=== PATIENT | female | born 1955 | race American Indian/Alaskan Native ===

== ENCOUNTER 2017-02-07 20:03 | Emergency (ER) | payer OTHER ==
[2017-02-07 20:30] VITALS: BP 155/93
[2017-02-07 21:32] LABS: Basophils % (Auto) 0.9 % (0.0-1.8); Eosinophils % (Auto) 2.7 % (0.0-4.3); Hemoglobin 11.4 gm/dl (10.1-14.3); Mean Corpuscular HGB Conc 32 % (30-34); Mean Corpuscular Hemoglobin 26 pg (28-32); Mean Corpuscular Volume 83 fl (79-97); Platelet Count 275 K/mm3 (140-440); Red Blood Count 4.34 M/mm3 (3.65-5.03); Red Cell Distribution Width 13.2 % (13.2-15.2); White Blood Count 3.8 K/mm3 (4.5-11.0)
[2017-02-07 21:49] LABS: Anion Gap 14 mmol/L; BUN/Creatinine Ratio 12.85; Blood Urea Nitrogen 9 mg/dL (7-17); Calcium 9.6 mg/dL (8.4-10.2); Carbon Dioxide 26 mmol/L (22-30); Glucose 84 mg/dL (65-100); Potassium 3.9 mmol/L (3.6-5.0); Sodium 139 mmol/L (137-145)
--- NOTE | 2017-02-07 23:00 | XRay Report ---
FINAL REPORT PROCEDURE: XR KNEE 3V RT TECHNIQUE: RIGHT knee radiographs, AP, lateral and oblique views. CPT 73761 HISTORY: Pain, COMPARISON: No prior studies are available for comparison. FINDINGS: Fracture (s) and/or Dislocation(s): None . Alignment: Normal . Joint space(s): Tricompartmental degenerative change with joint space narrowing and mild spurring. Soft tissues: Suprapatellar joint effusion. Bone mineralization: Normal . Foreign bodies: None . IMPRESSION: Degenerative change. Joint effusion.
[2017-02-07] MEDS ORDERED: PERCOCET 5/325 PO ONE (23:15)
--- NOTE | 2017-02-07 23:16 | Emergency Department Report ---
ED Lower Extremity HPI - General Chief Complaint: Extremity Problem,Nontraumatic Stated Complaint: RT KNEE PAIN/SWELLING Time Seen by Provider: 02/07/17 22:40 Source: patient, family Mode of arrival: Ambulatory Limitations: No Limitations - History of Present Illness Initial Comments: Patient here complaining of knee pain flareup for 3-4 days to her right knee. She denies any trauma she said she had prior history 6-7 years ago and she has arthritis. She said it's painful aching 6 out of 10 and is hard for her to be a pressure at side. Denies any fever or chills. Denies any nausea or vomiting. Denies any redness to knee. She says she has some swelling to that knee. MD Complaint: other (chronic knee pain) Onset/Timin -: days(s) Injury: Knee: Right (pain and swelling) Type of Injury: other (arthritis) Place: home Severity: moderate Severity scale (0 -10): 6 Worsens With: weight bearing, movement, palpation Context: other (chronic knee pain) Associated Symptoms: swelling, able to partially bear weight. denies: snap/pop sensation, numbness, tingling, unable to bear weight, ambulatory Treatments Prior to Arrival: NSAIDS - Related Data Home Medications Medication Instructions Recorded Confirmed Last Taken cycloSPORINE [Restasis 0.05%] 1 drop OU BID 01/12/15 01/12/15 01/12/15 07:00 Previous Rx's Medication Instructions Recorded Last Taken Type Naproxen [Naprosyn] 500 mg PO BID #30 tablet 01/12/15 Unknown Rx traMADol [Ultram 50 MG tab] 50 mg PO Q6HR PRN #20 tablet 01/12/15 Unknown Rx Magnesium Citrate [Citrate of 300 ml PO NOW #1 bottle 02/21/16 Unknown Rx Magnesia] HYDROcodone/APAP 5-325 [Dover 1 each PO Q6HR PRN #12 tablet 02/08/17 Unknown Rx 5/325] Ibuprofen [Motrin] 600 mg PO Q8H PRN #15 tablet 02/08/17 Unknown Rx Allergies Allergy/AdvReac Type Severity Reaction Status Date / Time shellfish Allergy Swelling Uncoded 02/07/17 20:27 ED Review of Systems ROS: Stated complaint: RT KNEE PAIN/SWELLING Other details as noted in HPI Comment: All other systems reviewed and negative Constitutional: denies: chills, fever Respiratory: no symptoms reported Cardiovascular: denies: chest pain, palpitations, edema, syncope Gastrointestinal: denies: abdominal pain, nausea, vomiting Musculoskeletal: joint swelling, arthralgia. denies: back pain, myalgia Skin: denies: rash Neurological: abnormal gait (due to chronic knee pain and swelling). denies: headache, weakness, numbness, paresthesias, vertigo ED Past Medical Hx - Past Medical History Previous Medical History?: Yes Hx Headaches / Migraines: Yes (TMJ) Additional medical history: SARCOIDOSIS-NASAL INVOLVEMENT - Surgical History Past Surgical History?: Yes Additional Surgical History: HYSTERECTOMY. EYE SURGERY--TEAR DUCTS. CYST REMOVED UNDER CHIN. SINUS SURGERY X 3 - Social History Smoking Status: Never Smoker Substance Use Type: None - Medications Home Medications: Home Medications Medication Instructions Recorded Confirmed Last Taken Type Naproxen [Naprosyn] 500 mg PO BID #30 tablet 01/12/15 Unknown Rx cycloSPORINE [Restasis 0.05%] 1 drop OU BID 01/12/15 01/12/15 01/12/15 07:00 History traMADol [Ultram 50 MG tab] 50 mg PO Q6HR PRN #20 tablet 01/12/15 Unknown Rx Magnesium Citrate [Citrate of 300 ml PO NOW #1 bottle 02/21/16 Unknown Rx Magnesia] HYDROcodone/APAP 5-325 [Dover 1 each PO Q6HR PRN #12 tablet 02/08/17 Unknown Rx 5/325] Ibuprofen [Motrin] 600 mg PO Q8H PRN #15 tablet 02/08/17 Unknown Rx ED Physical Exam - General Limitations: No Limitations General appearance: alert, in no apparent distress - Head Head exam: Present: atraumatic, normocephalic, normal inspection - Eye Eye exam: Present: normal appearance, PERRL, EOMI Pupils: Present: normal accommodation - Neck Neck exam: Present: normal inspection, full ROM. Absent: tenderness, meningismus, lymphadenopathy - Respiratory Respiratory exam: Present: normal lung sounds bilaterally. Absent: respiratory distress, chest wall tenderness - Cardiovascular Cardiovascular Exam: Present: regular rate, normal rhythm, normal heart sounds - Expanded Lower Extremity Exam Right Hip exam: Present: normal inspection, full ROM, pelvic stability. Absent: tenderness, swelling, abrasion, laceration, ecchymosis, deformity, crepidus, dislocation, erythema, external rotation, internal rotation, shortening Upper Leg exam: Present: normal inspection, full ROM. Absent: tenderness, swelling, abrasion, laceration, ecchymosis, deformity, crepidus, dislocation, erythema Knee exam: Present: tenderness, swelling, effusion, pain w/ pronation/ supination. Absent: normal inspection, full ROM, abrasion, laceration, ecchymosis, deformity, crepidus, dislocation, erythema, posterior draw sign, full knee extension Lower Leg exam: Present: normal inspection, full ROM. Absent: tenderness, swelling, abrasion, laceration, ecchymosis, deformity, crepidus, dislocation, erythema, palpable cord, Nessa's sign Ankle exam: Present: normal inspection, full ROM. Absent: tenderness, swelling , abrasion, laceration, ecchymosis, deformity, crepidus, dislocation, erythema Foot/Toe exam: Present: normal inspection, full ROM. Absent: tenderness, swelling, abrasion, laceration, ecchymosis, deformity, crepidus, dislocation, erythema, amputation, puncture wound, foreign body, calcaneal tenderness, tenderness at base of 5th metatarsal, nail avulsion Neuro vascular tendon exam: Present: no vascular compromise, significant pain with passive ROM of distal joint. Absent: pulse deficit, abnormal cap refill, motor deficit, sensory deficit, tendon deficit, extremity cold to touch, pallor , abnormal 2-point discrimination, decreased fine/light touch, foot drop, peroneal nerve deficit Gait: Positive: unable to bear weight - Neurological Exam Neurological exam: Present: alert, oriented X3, reflexes normal. Absent: abnormal gait (due to knee pain and swelling), motor sensory deficit - Psychiatric Psychiatric exam: Present: normal affect, normal mood - Skin Skin exam: Present: warm, dry, intact, normal color. Absent: rash ED Course Vital Signs 02/07/17 02/07/17 20:27 23:31 Temperature 85.9 F L 97.6 F Pulse Rate 66 Respiratory 20 Rate Blood Pressure 155/93 [Right] O2 Sat by Pulse 100 Oximetry Vital Signs 02/07/17 02/07/17 20:27 23:31 Temperature 85.9 F L 97.6 F Pulse Rate 66 Respiratory 20 Rate Blood Pressure 155/93 [Right] O2 Sat by Pulse 100 Oximetry - Reevaluation(s) Reevaluation #1: 02/08/17 00:16 Patient given Percocet 2 tablets in emergency room for knee pain which helped her knee pain. - Orthopedic Splinting/Casting Injury #1 Side: right Lower Extremity Injury Location: knee Lower Extremity Immobilizer: knee immobilizer Other Orthopedic Equipment: crutches ED Lower Extremity MDM - Lab Data Result diagrams: 02/07/17 21:18 02/07/17 21:18 Lab Results 02/07/17 02/07/17 Range/Units 21:18 21:18 WBC 3.8 L (4.5-11.0) K/mm3 RBC 4.34 (3.65-5.03) M/mm3 Hgb 11.4 (10.1-14.3) gm/dl Hct 36.0 (30.3-42.9) % MCV 83 (79-97) fl MCH 26 L (28-32) pg MCHC 32 (30-34) % RDW 13.2 (13.2-15.2) % Plt Count 275 (140-440) K/mm3 Lymph % (Auto) 47.3 H (13.4-35.0) % Florence % (Auto) 7.6 H (0.0-7.3) % Eos % (Auto) 2.7 (0.0-4.3) % Baso % (Auto) 0.9 (0.0-1.8) % Lymph # 1.8 (1.2-5.4) K/mm3 Florence # 0.3 (0.0-0.8) K/mm3 Eos # 0.1 (0.0-0.4) K/mm3 Baso # 0.0 (0.0-0.1) K/mm3 Seg Neutrophils % 41.5 (40.0-70.0) % Seg Neutrophils # 1.6 L (1.8-7.7) K/mm3 Sodium 139 (137-145) mmol/L Potassium 3.9 (3.6-5.0) mmol/L Chloride 103.0 (98-107) mmol/L Carbon Dioxide 26 (22-30) mmol/L Anion Gap 14 mmol/L BUN 9 (7-17) mg/dL Creatinine 0.7 (0.7-1.2) mg/dL Estimated GFR > 60 ml/min BUN/Creatinine Ratio 12.85 % Glucose 84 (65-100) mg/dL Calcium 9.6 (8.4-10.2) mg/dL - Radiology Data Radiology results: report reviewed X-ray of the right knee reveals degenerative changes with joint effusion - Medical Decision Making ED course: Given that 5 says she should've 52 tablets today pain with some relief of the pain. Procedure note for details on splinting. The patient that her x-ray revealed that she has degenerative changes in her knee with knee effusion. I discussed with her that she will need to follow-up with orthopedic doctor for further treatment and evaluation. She was understanding of diagnosis and treatment plan. Discharged home with her with prescription for Dover and Motrin Critical care attestation.: If time is entered above; I have spent that time in minutes in the direct care of this critically ill patient, excluding procedure time. ED Disposition Clinical Impression: Knee effusion, right, Arthralgia of right knee Degenerative joint disease of knee, right Qualifiers: Osteoarthritis type: unspecified Qualified Code(s): M17.9 - Osteoarthritis of knee, unspecified Disposition: DISCHARGED TO HOME OR SELFCARE Is pt being admited?: No Does the pt Need Aspirin: No Condition: Stable Instructions: Osteoarthritis (ED), Arthralgia (ED), Knee Effusion (ED) Additional Instructions: Please keep knee immobilizer on until seen by orthopedic doctor. Call tomorrow to schedule appointment for follow-up orthopedic doctor. Do not take Dover while you are driving or operating any heavy machinery as this medication causes drowsiness. Prescriptions: HYDROcodone/APAP 5-325 [Dover 5/325] 1 each PO Q6HR PRN #12 tablet PRN Reason: Pain Ibuprofen [Motrin] 600 mg PO Q8H PRN #15 tablet PRN Reason: Pain Referrals: SUNNY ORTIZ MD [Staff Physician] - 02/08/17 Forms: Work/School Release Form(ED), Accompanied Note
== END 2017-02-08 04:18 | disposition home or self-care (01) ==
LOC: ED 20:03
DX: M17.9 Osteoarthritis of knee, unspecified (principal); M25.461 Effusion, right knee; G89.29 Other chronic pain; G43.909 Migraine, unspecified, not intractable, without status migrainosus; Z91.013 Allergy to seafood
CPT/HCPCS: 36415; 80048; 85025

== ENCOUNTER 2020-01-23 13:07 | Outpatient (CLI) | payer OTHER ==
--- NOTE | 2020-01-23 16:32 | Mammography Report ---
DIGITAL SCREENING MAMMOGRAM WITH CAD, 01/23/2020 INDICATION: Routine screening mammography. TECHNIQUE: Digital bilateral 2D mammography was obtained in the craniocaudal and mediolateral obliq ue projections. This examination was interpreted with the benefit of Computer-Aided Detection analysi s. COMPARISON: None available. However, she indicated that she had a prior mammogram at [facility]. FINDINGS: Breast Density: The breasts are heterogeneously dense, which may obscure small masses. A right inner asymmetry on the CC view requires comparison with a prior mammogram or additional imagi ng. No architectural distortion or suspicious calcifications of the right breast. There is no evidenc e of dominant mass, suspicious calcifications or architectural distortion in the left breast. IMPRESSION:Comparison with a previous mammogram is recommended. We will attempt to obtain a prior gideon mogram for comparison. If we do not obtain a prior mammogram within 30 days, a revised report will be issued recommending a recall for additional imaging. Please be advised that the patient should not s chedule an appointment for return until adequate time (at least 2 weeks) has passed for us to obtain the prior mammogram. Follow up recommendation: Obtain prior study for comparison Category 0: Incomplete. Needs additional imaging evaluation and/or prior mammograms for comparison. A "normal" or negative report should not discourage follow up or biopsy of a clinically significant f inding. A written summary of these findings will be mailed to the patient. The patient will be entered into a mammography reporting system which will generate a reminder letter for the patient's next appointmen t at the appropriate interval. The [employer] recommends yearly mammograms starting at age 40 and continuing as l hollis as a woman is in good health. Breast MRI is recommended for women with an approximate 20-25% or greater lifetime risk of breast cancer, including women with a strong family history of breast or ova edmond cancer or who have been treated for Hodgkin's disease. Signer Name: Gregory Abdi MD Signed: 01/23/2020 4:28 PM Workstation Name: [id number]
== END 2020-01-23 13:08 | disposition home or self-care (01) ==
LOC: MAMMO 13:07
DX: Z12.31 Encounter for screening mammogram for malignant neoplasm of breast (principal); K58.1 Irritable bowel syndrome with constipation; D86.9 Sarcoidosis, unspecified; R00.2 Palpitations; M25.561 Pain in right knee
CPT/HCPCS: 77067

== ENCOUNTER 2020-03-03 08:04 | Outpatient (CLI) | payer OTHER ==
--- NOTE | 2020-03-03 12:00 | Mammography Report ---
RIGHT DIGITAL DIAGNOSTIC MAMMOGRAM WITH CAD -- 03/03/2020 RIGHT LIMITED BREAST ULTRASOUND INDICATION: Patient presents as a callback from screening mammogram for further evaluation of an asym metric density in the right breast. TECHNIQUE: Digital right mammographic imaging was performed. Spot compression views were obtained. L imited ultrasound was performed. This examination was interpreted with the benefit of Computer-Aided Detection (CAD) analysis. COMPARISON: Prior mammogram 01/23/2020 FINDINGS: Breast Density: The breasts are heterogeneously dense, which may obscure small masses. MAMMOGRAPHIC FINDINGS: There is a persistent 10 mm focal asymmetric density seen in the 1 to 2:00 pos ition of the right breast, middle depth, located 6 cm from the nipple. Targeted ultrasound performed for further evaluation. ULTRASOUND FINDINGS: Targeted ultrasound evaluation was performed of the area of interest. Targeted ultrasound of the upper inner quadrant of the right breast reveals an incidental benign intramammary lymph node in the 2:00 subareolar position of the right breast measuring up to 6 mm. This is felt to represent an incidental finding which does not definitively correlate with the mammographic focal as ymmetric density. No suspicious cystic or solid lesion identified. IMPRESSION: 1. A persistent focal asymmetric density in the right breast is considered suspicious for malignancy. As no sonographic correlate is identified, either tomosynthesis capable stereotactic biopsy versus w anuj localized excisional biopsy is recommended. Follow up recommendation: Biopsy BI-RADS Category 4: Suspicious for Malignancy. A "normal" or negative report should not discourage follow up or biopsy of a clinically significant f inding. A written summary of these findings will be mailed to the patient. The patient will be entered into a mammography reporting system which will generate a reminder letter for the patient's next appointmen t at the appropriate interval. According to the [employer], yearly mammograms are recommended starting at age 40 and continuing as long as a woman is in good health. Breast MRI is recommended for women with an zhou roximately 20-25% or greater lifetime risk of breast cancer, including women with a strong family his tory of breast or ovarian cancer and women who have been treated for Hodgkin's disease. Signer Name: Yaneli Adams MD Signed: 03/03/2020 11:56 AM Workstation Name: [email or web address]
== END 2020-03-03 08:05 | disposition home or self-care (01) ==
LOC: MAMMO 08:04
PROVIDERS: ATTEND Internal Medicine
DX: R92.8 Other abnormal and inconclusive findings on diagnostic imaging of breast (principal); D36.0 Benign neoplasm of lymph nodes

== ENCOUNTER 2020-03-19 10:12 | Outpatient (CLI) | payer OTHER ==
--- NOTE | 2020-03-19 14:13 | Mammography Report ---
UNSUCCESSFUL STEREOTACTIC NEEDLE BIOPSY RIGHT BREAST INDICATION: RIGHT BREAST ASYMMETRY. Negative right breast ultrasound. COMPARISON: 03/03/2020 and 01/23/2020 mammograms and 03/03/2020 right breast ultrasound. FINDINGS: The patient was placed prone on the stereotactic biopsy table. Make Up Arranger images were obtained. However, a suitable lesion cannot be targeted for biopsy. No anesthesia was administered and no skin incision w as made. IMPRESSION: 1. Unsuccessful attempt at right stereotactic breast biopsy. 2. Recommend MRI breast to further evaluate the right inner mammographic asymmetry.. Signer Name: Gregory Abdi MD Signed: 03/19/2020 2:09 PM Workstation Name: [id number]
--- NOTE | 2020-03-19 15:27 | Magnetic Resonance Report ---
BILATERAL BREAST MR WITHOUT AND WITH GADOLINIUM INDICATION: Abnormal mammogram with a right inner asymmetry identified only on the CC view. Unsucces sful attempt at stereotactic biopsy on the same day as this study. COMPARISONS: 03/03/2020 and 01/23/2020 mammograms and 03/03/2020 right breast ultrasound. TECHNIQUE: Axial 1.0 mm T1 without, axial high-resolution 2.0 mm T2 and axial 1.0 mm dynamic vibrant high-resolution postcontrast T1 fat saturation sequences on a 1.5 Camelia magnet. The examination was p erformed with an 8-channel dedicated Sentinelle breast coil. Post-processing with CAD and subtraction was performed on an [employer] workstation. 17.0 cc of MultiHance was injected without incident for the c ontrast portion of the exam. Consent was obtained prior to the administration of the contrast. FINDINGS: RIGHT BREAST: Minimal background parenchymal enhancement. No mass or suspicious enhancement. No suspi cious lymph nodes. LEFT BREAST: Minimal background parenchymal enhancement. No mass or suspicious enhancement. No suspic ious lymph nodes. IMPRESSION: Negative study. Recommend routine mammographic screening. BI-RADS Category 1: Negative A normal MRI does not exclude the presence of some forms of breast malignancy as literature reports s uggest that some forms of ductal carcinoma in situ or lobular carcinoma, particularly, may not be det ected on MRI. The sensitivity and specificity of MRI for cancers under 5 mm may be reduced. MRI does not replace the recommendation for annual conventional mammographic evaluation and should be used as an adjunct to mammography and physical examination as necessary. Signer Name: Gregory Abdi MD Signed: 03/19/2020 3:22 PM Workstation Name: [id number]
== END 2020-03-19 10:13 | disposition home or self-care (01) ==
LOC: SPVWC 10:12
PROVIDERS: ATTEND Internal Medicine
DX: R92.8 Other abnormal and inconclusive findings on diagnostic imaging of breast (principal)
CPT/HCPCS: A9577; C8908; 77049

== ENCOUNTER 2021-03-24 09:50 | Outpatient (CLI) | payer OTHER ==
--- NOTE | 2021-03-24 12:21 | Mammography Report ---
BILATERAL DIGITAL SCREENING MAMMOGRAM WITH CAD HISTORY: Screening mammogram. Finding noted previously in the right upper inner breast. TECHNIQUE: Routine digital mammographic imaging performed. This examination was interpreted with padmaja parra benefit of Computer-aided Detection analysis. COMPARISON: 03/19/2020, 03/03/2020, 01/23/2020. FINDINGS: Breast Density: heterogeneously dense breast parenchymal pattern which somewhat lessens the sensitivi ty of the evaluation. Digital CC and MLO views demonstrate no mammographic evidence of malignancy. Specifically, a previou sly noted finding seen in the right upper inner breast mammographically is no longer identified. Of n ote a prior ultrasound showed no sonographic correlate and no suspicious finding was seen in this reg ion on the recent breast MRI. IMPRESSION: No mammographic evidence of malignancy. If the clinical examination remains stable, recommend bilate ral mammogram in approximately one year. BIRADS 1: Negative. FURTHER INFORMATION: According to the [employer], yearly mammograms are recommend ed starting at age 40 and continuing as long as a woman is in good health. Clinical Breast Exams shou ld be part of a periodic health exam-about every 3 years for women in their 20s and 30s and every yea r for women 40 and over. Breast self exam is an option for women starting in their 20s. Any breast ch bibiana noted on a breast self exam should be reported promptly to the patient's healthcare provider. Br east MRI is recommended for women with an approximately 20-25% or greater lifetime risk of breast can cer, including women with a strong family history of breast or ovarian cancer and women who have been treated for Hodgkin's disease. A negative Mammography report should not discourage follow up or biopsy of a clinically significant f inding and/or abnormality. Dense breast tissue may obscure small neoplasms. The patient will be entered into a reminder system with a target due date for the next screening mamm ogram. Signer Name: Peterson Lynn MD Signed: 03/24/2021 12:16 PM Workstation Name: [id number]
== END 2021-03-24 09:51 | disposition home or self-care (01) ==
LOC: SPVWC 09:50
PROVIDERS: ATTEND Internal Medicine
DX: Z12.31 Encounter for screening mammogram for malignant neoplasm of breast (principal); N64.89 Other specified disorders of breast
CPT/HCPCS: 77067

== ENCOUNTER 2021-06-03 08:53 | Outpatient (CLI) | payer OTHER ==
--- NOTE | 2021-06-03 09:57 | Ultrasound Report ---
ULTRASOUND BREAST RIGHT COMPLETE, 06/03/2021 CLINICAL INFORMATION / INDICATION: The patient has a history of abnormal right mammogram in 2019 soha fested by an asymmetric density in the upper inner right breast. This finding was previously evaluate d and demonstrated benign findings. The patient presents today for follow-up of the right breast and due to history of dense breast tissue. TECHNIQUE: Complete sonographic evaluation of all 4 quadrants and retroareolar region was performed. COMPARISON: Screening mammogram, 01/23/2020 and 03/24/2021. Diagnostic mammogram, 03/03/2020. Breast MRI , 03/19/2020 FINDINGS: Sonographic evaluation of all 4 quadrants and retroareolar position demonstrate no evidence of suspic ious solid mass or shadowing. Evaluation of the right axilla demonstrates multiple moderately enlarged lymph nodes with a thickened cortex. As a reference, the largest measures approximately 1.9 cm in length by 1.1 cm in short axis. IMPRESSION: 1. Moderately enlarged right axillary lymph nodes which represent an incidental finding. The patient has had no recent right arm vaccination. Therefore, surgical consultation and ultrasound-guided biops y should be considered. 2. No sonographic abnormality of the right breast. Follow up recommendation: Surgical consult BI-RADS Category 4: Suspicious for Malignancy. A normal or "negative" report should not preclude biopsy or follow-up of a clinically suspicious find ing. Signer Name: Sofi Lambert MD Signed: 06/03/2021 9:53 AM Workstation Name: [id number]
== END 2021-06-03 08:54 | disposition home or self-care (01) ==
LOC: SPVWC 08:53
PROVIDERS: ATTEND Internal Medicine
DX: R59.0 Localized enlarged lymph nodes (principal); R92.8 Other abnormal and inconclusive findings on diagnostic imaging of breast

== ENCOUNTER 2022-04-28 13:16 | Outpatient (CLI) | payer OTHER ==
--- NOTE | 2022-04-28 17:40 | Ultrasound Report ---
BILATERAL DIGITAL DIAGNOSTIC MAMMOGRAM WITH CAD CONVENTIONAL, 04/28/2022 RIGHT LIMITED AXILLARY ULTRASOUND CLINICAL INFORMATION / INDICATION: History of right axillary adenopathy TECHNIQUE: Digital bilateral mammographic imaging was performed. Limited ultrasound was performed. Th is examination was interpreted with the benefit of Computer-Aided Detection (CAD) analysis. COMPARISON: Bilateral mammogram 03/24/2021, right breast ultrasound 06/03/2021 FINDINGS: Breast Density: The breasts are heterogeneously dense, which may obscure small masses. MAMMOGRAPHIC FINDINGS: No significant changes are seen with no focal lesions noted in either breast. ULTRASOUND FINDINGS: Targeted ultrasound evaluation was performed of the area of interest. Examinatio n of the right axilla shows several moderately prominent nodes, the largest measuring approximately 1 1 mm in short axis diameter and nearly 3 cm in length. Cortical thickness is moderately prominent at 5 mm maximum in these nodes but this is significantly decreased from the up to 7 mm thickness on prio r study last year. Large fatty vishal are seen with good definition. IMPRESSION: 1. No breast lesions are seen 2. Previous right axillary lymphadenopathy with prominent cortical thickness has improved as above. T his apparently was not related to Covid immunization which was in the contralateral upper extremity l ast year. A recommendation for ultrasound-guided lymph node biopsy was given last year but I believe this was not performed. Because of the improvement, unless there is a clinical concern biopsy may fur ther be delayed. I would recommend clinical correlation however. Follow-up right axillary ultrasound in 6 months is recommended. Follow up recommendation: As above BI-RADS Category 3: PROBABLY BENIGN. Followup in 6 months. A "normal" or negative report should not discourage follow up or biopsy of a clinically significant f inding. A written summary of these findings will be mailed to the patient. The patient will be entered into a mammography reporting system which will generate a reminder letter for the patient's next appointmen t at the appropriate interval. According to the [employer], yearly mammograms are recommended starting at age 40 and continuing as long as a woman is in good health. Breast MRI is recommended for women with an zhou roximately 20-25% or greater lifetime risk of breast cancer, including women with a strong family his tory of breast or ovarian cancer and women who have been treated for Hodgkin's disease. Signer Name: Quinn Serna MD Signed: 04/28/2022 5:35 PM Workstation Name: [id number]
== END 2022-04-28 13:17 | disposition home or self-care (01) ==
LOC: SPVWC 13:16
PROVIDERS: ATTEND Internal Medicine
DX: R92.8 Other abnormal and inconclusive findings on diagnostic imaging of breast (principal); N64.9 Disorder of breast, unspecified
CPT/HCPCS: 77066

== ENCOUNTER 2022-07-06 08:13 | Outpatient (CLI) | payer OTHER ==
--- NOTE | 2022-07-08 08:00 | Magnetic Resonance Report ---
MRI BREAST BILATERAL WITH AND WITHOUT CONTRAST, 07/07/2022 CLINICAL INFORMATION / INDICATION: Previous abnormal breast imaging. History of right axillary adenop athy with improvement on recent diagnostic mammogram and right breast ultrasound. TECHNIQUE: Axial T1 and T2-weighted fat sat images were obtained precontrast. 17 cc Clariscan contras t was injected intravenously and serial axial T1 weighted images with fat saturation were obtained. 3 -D MIP projections, kinetic analysis, and subtraction imaging were utilized to evaluate. A dedicated 8-channel breast coil was used for image acquisition. COMPARISON: Diagnostic bilateral mammogram and limited right breast ultrasound performed on 04/28/2022 . Breast MRI performed on 03/19/2020. FINDINGS: BREAST DENSITY: Heterogeneously dense. BACKGROUND ENHANCEMENT: Low level background enhancement within both breasts. RIGHT BREAST: No dominant mass or suspicious area of enhancement in the right breast. LEFT BREAST: No dominant mass or suspicious area of enhancement in the left breast. AXILLAE: No pathologically enlarged axillary lymph nodes. Right axillary nodes measuring less than 1 cm with expected appearance are seen. ADDITIONAL FINDINGS: Limited imaging of the thorax and upper abdomen demonstrates no focal abnormalit y. IMPRESSION: 1. No MRI evidence of malignancy. Follow up recommendation: Routine yearly screening mammogram. BI-RADS Category 2: BENIGN. Signer Name: Jesus Hook MD Signed: 07/08/2022 7:55 AM Workstation Name: [id number]
== END 2022-07-06 08:14 | disposition home or self-care (01) ==
LOC: SPVIMAG 08:13
PROVIDERS: ATTEND Internal Medicine
DX: R92.8 Other abnormal and inconclusive findings on diagnostic imaging of breast (principal)
CPT/HCPCS: A9575; C8908; 77049